=== PATIENT | male | born 1965 | race Caucasian/White ===

== ENCOUNTER → 2024-03-30 | Outpatient (CLI) | payer OTHER ==
--- NOTE | 2024-03-30 08:36 | US ---
EXAMINATION TYPE: US abdomen limited DATE OF EXAM: 03/30/2024 COMPARISON: NONE CLINICAL INDICATION: Male, 58 years old with history of R10.32 LEFT LOWER QUAD PAIN; LLQ pain/injury - r/o hernia Technique: Grayscale imaging of the left lower quadrant. FINDINGS: Assess for hernia at location of: LLQ Vague area noted at patient's area of concern within the left lower quadrant, just superior to the il iac vessels 1.6cm. IMPRESSION: No definitive hernia identified. Vague area identified by the finance effectiveness manager is indetermina te. Consider hernia protocol CT. Real-time scanning was performed by the finance effectiveness manager utilizing Valsalva and additional dynamic maneuve rs to assess for hernia. Images of the contralateral side were also acquired for direct comparison.
== END | disposition home or self-care (01) ==
LOC: RADUSWWP 07:25
PROVIDERS: ATTEND Family Medicine
DX: R10.32 Left lower quadrant pain (principal)
CPT/HCPCS: 76705

== ENCOUNTER → 2024-08-24 | Outpatient (CLI) | payer OTHER ==
--- NOTE | 2024-08-24 10:13 | CT ---
EXAMINATION TYPE: CT abdomen pelvis w con CT DLP: 1800 mGycm, Automated exposure control for dose reduction was used. DATE OF EXAM: 08/24/2024 10:03 AM COMPARISON: CT abdomen pelvis 02/10/2012, abdominal ultrasound 03/30/2024 CLINICAL INDICATION:Male, 59 years old with history of R10.32 Left lower quadrant pain; LLQ abdominal pain. TECHNIQUE: Standard CT of the abdomen and pelvis following the administration of 100 cc of Isovue 3 00 IV contrast material and oral contrast. Coronal and sagittal reformats were performed. FINDINGS: LOWER CHEST: Peripheral right lower lobe 5 mm pulmonary nodule (series 4, image 9). Additional pleura l-based right lower lobe medial 4 mm pulmonary nodule (series 4, image 10). ABDOMEN LIVER: Few subcentimeter hypodense foci which are too small to accurately characterize but likely rep resent cysts. Liver is diffusely hypoattenuating suggesting fatty infiltration. GALLBLADDER AND BILE DUCTS: Unremarkable. PANCREAS: Unremarkable. SPLEEN: Mildly enlarged measuring 15.2 cm in cc dimension. ADRENAL GLANDS: Unremarkable. KIDNEYS AND URETERS: No evidence of hydronephrosis or renal calculus. The kidneys enhance symmetrical ly. Contrast is demonstrated within both collecting systems on the delayed phase. PELVIS BLADDER: Unremarkable REPRODUCTIVE: Coarse calcifications of the prostate gland are identified. Prostate gland is enlarged measuring 5.2 cm in transverse dimension. ABDOMEN & PELVIS STOMACH AND BOWEL: Stomach and duodenum are unremarkable. Distal colonic diverticulosis without evide nce for acute diverticulitis. No focal bowel wall thickening or surrounding inflammatory changes. The appendix is within normal limits. Enteric contrast reaches the terminal ileum. No evidence of bowel obstruction. PERITONEUM: No evidence of pneumoperitoneum or free fluid. VASCULATURE: Mild atherosclerotic calcifications are present throughout the abdominal aorta and its b ranches. No evidence of aortic aneurysm. Pelvic phleboliths. MUSCULOSKELETAL: No acute osseous abnormalities LYMPH NODES: No evidence for lymphadenopathy. SOFT TISSUE/ABDOMINAL WALL: Tiny fat filled umbilical hernia. IMPRESSION: 1. No CT evidence for an acute abdominal process. 2. Colonic diverticulosis without evidence for acute diverticulitis. 3. Mild splenomegaly. 4. Hepatic steatosis. 5. Prostatomegaly. [facility], , 08/24/2024 10:11 AM
== END | disposition home or self-care (01) ==
LOC: RADCTMAIN 08:03
PROVIDERS: ATTEND Family Medicine
CPT/HCPCS: 74177

== ENCOUNTER → 2024-09-12 | Outpatient (CLI) | payer OTHER ==
--- NOTE | 2024-09-12 10:50 | US ---
EXAMINATION TYPE: US abdomen complete DATE OF EXAM: 09/12/2024 COMPARISON: CLINICAL INDICATION: Male, 59 years old with history of K76.0 Fatty liver; attn: liver,spleen; Left s don pain. Abnormal CT. TECHNIQUE: Grayscale and color Doppler imaging of the abdomen was performed. FINDINGS: EXAM MEASUREMENTS: Liver Length: 21.3 cm Gallbladder Wall: 0.2 cm CBD: 0.4 cm Spleen: 13.1 cm Right Kidney: 12.2 x 6.6 x 5.7 cm Left Kidney: 12.4 x 4.7 x 5.9 cm Pancreas: Echogenic in appearance, head and tail not well seen Liver: Echogenic in appearance. Enlarged in size. Hypoechoic lesions, largest measured: right- 0.9 x 0.7 x 0.7 cm and left- 0.8 x 0.7 x 0.7 cm Gallbladder: Echogenic lesion seen adjacent to wall, nonvascular = 0.5 cm Evidence for sonographic Watts's sign: neg CBD: wnl Spleen: Enlarged in size Right Kidney: No hydronephrosis or masses seen Left Kidney: No hydronephrosis or masses seen Upper IVC: wnl Abd Aorta: Proximal obscured by overlying bowel gas. No AAA visualized at time of scan. IMPRESSION: 1. Nonspecific pattern to the liver likely on the basis of hepatic steatosis. Small hypoechoic lesion s in the liver are too small to characterize and stable from recent CT. Statistically most likely in the basis of tiny simple cyst. 2. Small adherent gallstone or any gallbladder polyp. No evidence of cholecystitis. 3. Hepatosplenomegaly. [facility], , 09/12/2024 10:47 AM
== END | disposition home or self-care (01) ==
LOC: RADUSWWP 09:25
PROVIDERS: ATTEND Family Medicine
CPT/HCPCS: 76700